=== PATIENT | female | born 2000 | race Caucasian/White ===

== ENCOUNTER 2020-03-14 09:27 | Outpatient (CLI) | payer BC ==
--- NOTE | 2020-03-14 11:36 | MRI ---
MRI OF THE LEFT SHOULDER AND SCAPULA: DATE: 03/14/2020. PROVIDED CLINICAL HISTORY: Pain. FINDINGS: The components of the rotator cuff appear intact. The long head biceps tendon appears intact and nor lilibeth located. The glenoid labrum and glenohumeral articular cartilage re suboptimally evaluated in the absence of joint distention but appears grossly normal. The amount of fluid within the glenohume ral joint and subacromial subdeltoid bursa appear physiologic. No focal concerning regional marrow o r muscular signal abnormality is evident. Specifically, the scapular marrow signal and juxtoscapular musculature demonstrate a normal MRI appearance. IMPRESSION: Unremarkable study. POS: [facility]
== END 2020-03-14 09:28 | disposition home or self-care (01) ==
LOC: SCSMRI 09:27
PROVIDERS: ATTEND Orthopaedic Surgery
DX: M25.512 Pain in left shoulder (principal)